=== PATIENT | male | born 1960 | race African-American/Black ===

== ENCOUNTER 2017-01-11 20:50 | Emergency (ER) | payer SELFPAY ==
[~2017-01-11] VITALS: Ht 180.3 cm; Wt 104.5 kg
[2017-01-11 22:27] VITALS: BP 159/97
== END 2017-01-11 22:39 | disposition home or self-care (01) ==
LOC: ER 22:31
DX: J06.9 Acute upper respiratory infection, unspecified (principal); R03.0 Elevated blood-pressure reading, without diagnosis of hypertension; Z88.0 Allergy status to penicillin
CPT/HCPCS: 99283

== ENCOUNTER 2018-01-01 01:10 | Emergency (ER) | payer SELFPAY ==
[~2018-01-01] VITALS: Ht 177.8 cm; Wt 108.0 kg
[2018-01-01 01:20] VITALS: BP 138/85
== END 2018-01-01 04:30 | disposition left against medical advice (07) ==
LOC: ER 01:10
DX: R50.9 Fever, unspecified (principal); Z53.21 Procedure and treatment not carried out due to patient leaving prior to being seen by health care provider

== ENCOUNTER 2018-01-01 16:18 | Emergency (ER) | payer SELFPAY ==
[~2018-01-01] VITALS: Ht 177.8 cm; Wt 106.0 kg
[2018-01-01 17:02] VITALS: BP 146/48
[2018-01-01 18:18] LABS: CLARITY URINE CLEAR (CLEAR); COLOR URINE YELLOW (YELLOW); KETONES URINE NEGATIVE (NEGATIVE); LEUKOCYTE ESTERASE URINE NEGATIVE (NEGATIVE); NITRITE URINE NEGATIVE (NEGATIVE); OCCULT BLOOD URINE NEGATIVE (NEGATIVE); PH URINE 7.5 (4.5-8.0); PROTEIN URINE NEGATIVE (NEGATIVE); SPECIFIC GRAVITY URINE 1.014 (1.005-1.030); UROBILINOGEN URINE 0.2 E.U./dL (0.2-1.0)
== END 2018-01-02 05:36 | disposition home or self-care (01) ==
LOC: ER 16:18
DX: R35.0 Frequency of micturition (principal); Z88.0 Allergy status to penicillin
CPT/HCPCS: 81003; 82962; 87086; 99284

== ENCOUNTER 2018-09-12 18:09 | Emergency (ER) | payer SELFPAY ==
[~2018-09-12] VITALS: Ht 177.8 cm; Wt 104.0 kg
[2018-09-12 18:18] VITALS: BP 149/77
== END 2018-09-12 20:08 | disposition left against medical advice (07) ==
LOC: ER 18:09
DX: R05 Cough (principal); J39.2 Other diseases of pharynx; Z53.21 Procedure and treatment not carried out due to patient leaving prior to being seen by health care provider

== ENCOUNTER 2019-06-29 17:09 | Emergency (ER) | payer SELFPAY ==
[~2019-06-29] VITALS: Ht 180.3 cm; Wt 103.0 kg
[2019-06-29 17:32] VITALS: BP 161/80
== END 2019-06-29 18:54 | disposition home or self-care (01) ==
LOC: ER 17:09
DX: S39.012A Strain of muscle, fascia and tendon of lower back, initial encounter (principal); Z88.0 Allergy status to penicillin; X50.0XXA Overexertion from strenuous movement or load, initial encounter; Y93.B9 Activity, other involving muscle strengthening exercises; Y92.39 Other specified sports and athletic area as the place of occurrence of the external cause
CPT/HCPCS: 99281

== ENCOUNTER 2021-01-13 20:28 | Emergency (ER) | payer OTHER ==
[~2021-01-13] VITALS: Ht 180.3 cm; Wt 105.0 kg
[2021-01-13 20:58] VITALS: BP 177/85
== END 2021-01-13 22:51 | disposition left against medical advice (07) ==
LOC: ER 20:28
DX: R42 Dizziness and giddiness (principal); Z53.21 Procedure and treatment not carried out due to patient leaving prior to being seen by health care provider

== ENCOUNTER 2022-02-04 19:22 | Emergency (ER) | payer OTHER ==
[~2022-02-04] VITALS: Ht 180.3 cm; Wt 108.0 kg
[2022-02-04 20:07] VITALS: BP 153/94
== END 2022-02-04 21:47 | disposition left against medical advice (07) ==
LOC: ER 19:22
DX: Z53.21 Procedure and treatment not carried out due to patient leaving prior to being seen by health care provider (principal)

== ENCOUNTER 2022-08-17 18:04 | Emergency (ER) | payer OTHER ==
[~2022-08-17] VITALS: Ht 172.7 cm; Wt 98.0 kg
[2022-08-17] MEDS ORDERED: ALBUTEROL (0.5%) 2.5MG/0.5ML NEB HHN NR (19:45)
[2022-08-17] MEDS ORDERED: GUAIFENESIN 600MG ER TABLET PO NR (19:45)
[2022-08-17] MEDS ORDERED: GUAI600T26 MT (20:13)
[2022-08-17] MEDS ORDERED: ALBU6.7H15 INH (20:13)
[2022-08-17] MEDS ORDERED: ACET-2708 MT (20:13)
[2022-08-17 21:31] VITALS: BP 112/78
== END 2022-08-17 21:32 | disposition home or self-care (01) ==
LOC: ER 18:04
DX: J40 Bronchitis, not specified as acute or chronic (principal); I10 Essential (primary) hypertension; Z00.00 Encounter for general adult medical examination without abnormal findings; Z88.0 Allergy status to penicillin
CPT/HCPCS: 71045; 94640; 99283